=== PATIENT | female | born 1945 | race American Indian/Alaskan Native ===

== ENCOUNTER 2018-06-07 10:48 | Outpatient (CLI) | payer MEDICARE ==
--- NOTE | 2018-06-07 23:12 | XRay Report ---
PROCEDURE: XR SPINE LUMBOSACRAL 2-3V TECHNIQUE: Lumbar spine radiographs, views. HISTORY: LUMBAR STENOSIS COMPARISONS: None . FINDINGS: Vertebral height is within normal limits. Intervertebral disc spaces are well maintained. There is mi ld degree of anterolisthesis at L4-5 and L5-S1 levels measuring about 5 mm resulting in spinal canal stenosis. An acute fracture is not identified. Pre and paravertebral soft tissues are within normal l imits. Bilateral iliac venous stents are identified. IMPRESSION: Spondylolisthesis at L4-5 and L5-S1 with spinal canal stenosis. This document is electronically signed by Behzad Mariee MD., June 07 2018 11:09:53 PM ET
== END 2018-06-07 10:49 | disposition home or self-care (01) ==
LOC: XRAY 10:48
PROVIDERS: ATTEND Neurological Surgery
DX: M43.17 Spondylolisthesis, lumbosacral region (principal); M48.07 Spinal stenosis, lumbosacral region; I10 Essential (primary) hypertension; E78.00 Pure hypercholesterolemia, unspecified; K21.9 Gastro-esophageal reflux disease without esophagitis; M19.90 Unspecified osteoarthritis, unspecified site; E03.9 Hypothyroidism, unspecified; Z90.710 Acquired absence of both cervix and uterus
CPT/HCPCS: 72100

== ENCOUNTER 2019-12-07 09:37 | Outpatient (CLI) | payer OTHER ==
--- NOTE | 2019-12-07 11:15 | Ultrasound Report ---
ULTRASOUND RENAL INDICATION / CLINICAL INFORMATION: N39.0 UTI. COMPARISON: None available. FINDINGS: RIGHT KIDNEY: Length = 10.3 cm. [normal > 9 cm] - Parenchymal Thickness = 1.6 cm. [normal > 1.5 cm] - Echogenicity: Normal. - Hydronephrosis: None. - Cyst or mass: No significant abnormality. - Stones: None seen. LEFT KIDNEY: Length = 10.5 cm. [normal > 9 cm] - Parenchymal Thickness = 1.7 cm. [normal > 1.5 cm] - Echogenicity: Normal. - Hydronephrosis: None. - Cyst or mass: No significant abnormality. - Stones: None seen. URINARY BLADDER: No significant abnormality. FREE FLUID: None. ADDITIONAL FINDINGS: None. IMPRESSION: No significant abnormality. Signer Name: Shane Malik Jr, MD Signed: 12/07/2019 11:10 AM Workstation Name: [id number]
== END 2019-12-07 09:38 | disposition home or self-care (01) ==
LOC: US 09:37
PROVIDERS: ATTEND Urology
DX: N39.0 Urinary tract infection, site not specified (principal)
CPT/HCPCS: 76770

== ENCOUNTER 2020-01-10 06:45 | Outpatient (CLI) | payer OTHER ==
--- NOTE | 2020-01-10 09:35 | Fluoroscopy Report ---
FLUOROSCOPY CYSTOGRAM VOIDING HISTORY: Malignant neoplasm of upper lobe. Urinary incontinence, UTI. COMPARISON: None. FINDINGS: The bladder was catheterized for retrograde administration of approximately 250 cc of Cystografin. Th ere is normal filling of the bladder. No bladder mass or wall abnormality is detected. No vesicourete ral reflux. The catheter was removed for the voiding portion of this exam. The patient was incontinent during thi s exam. The urethra appears normal on fluoroscopy. There is a moderate post void residual at the end of this exam. IMPRESSION: Normal fluoroscopic appearance of the bladder and urethra. Urinary incontinence was witnessed. Moderate post void residual. Fluoroscopic images: 31 Fluoroscopic time: 2.0 minutes. Signer Name: Shane Malik Jr, MD Signed: 01/10/2020 9:30 AM Workstation Name: [id number]
== END 2020-01-10 06:46 | disposition home or self-care (01) ==
LOC: FLUORO 06:45
PROVIDERS: ATTEND Urology
DX: N39.0 Urinary tract infection, site not specified (principal); N39.498 Other specified urinary incontinence; E78.00 Pure hypercholesterolemia, unspecified; I10 Essential (primary) hypertension; K21.9 Gastro-esophageal reflux disease without esophagitis; M19.90 Unspecified osteoarthritis, unspecified site; E03.9 Hypothyroidism, unspecified; Z98.890 Other specified postprocedural states; Z85.850 Personal history of malignant neoplasm of thyroid; Z90.710 Acquired absence of both cervix and uterus; Z98.51 Tubal ligation status
CPT/HCPCS: 51600; 74455; Q9958

== ENCOUNTER 2020-08-25 15:00 | Emergency (ER) | payer OTHER ==
--- NOTE | 2020-08-25 16:50 | Emergency Department Report ---
ED Chest Pain HPI - General Chief Complaint: Chest Pain Stated Complaint: CHEST PAIN/NAUSEA Time Seen by Provider: 08/25/20 16:15 Source: patient Mode of arrival: Wheelchair Limitations: No Limitations - History of Present Illness Initial Comments: 75-year-old female, history of hypertension, hypercholesterolemia, hypothyroidism, acid reflux, presents to ED with complaint of chest pain x2 weeks. Patient states the pain is sharp, worse with upright sitting position, better when lying supine. Patient states she has been having epigastric abdominal pain, indigestion for 2 weeks as well. States she has been taking antiacid, which relieves the discomfort briefly, however pain returns with eating. She reports nausea, no vomiting or diarrhea. Patient states she took a laxative last night. Since then, patient states her stools have been dark col ored. Patient denies iron pills or Pepto-Bismol. Denies any chronic NSAID use. Patient states she takes a baby aspirin daily. Patient also reports some dyspnea on exertion. MD Complaint: chest pain -: week(s) (2) Onset: during rest Pain Location: left chest Severity: moderate Severity scale (0 -10): 4 Quality: sharp Consistency: intermittent Improves With: other (Supine position) Worsens With: palpation, other (Upright position) re: nausea, dyspnea. denies: vomting, diaphoresis Other Symptoms: denies: cough, fever, syncope Aspirin use within the Past 7 Days: (1) Yes - Related Data Home Medications Medication Instructions Recorded Confirmed Last Taken AtorvaSTATin [Lipitor] 40 mg PO QHS 02/07/18 02/07/18 02/06/18 40 mg Famotidine [Pepcid] 40 mg PO QHS 02/07/18 02/07/18 02/06/18 40 mg Hydralazine HCl 50 mg PO TID 02/07/18 02/07/18 02/06/18 50 mg Levothyroxine [Synthroid] 0.125 mg PO DAILY 02/07/18 02/07/18 02/06/18 0.125mg Losartan [Cozaar] 100 mg PO DAILY 02/07/18 02/07/18 02/07/18 06:00 100 mg traZODone [Desyrel] 50 mg PO QHS 02/07/18 02/07/18 02/06/18 50 mg Previous Rx's Medication Instructions Recorded Last Taken Type HYDROcodone/APAP 10-325 [[place]wall 1 each PO Q6HR PRN #30 tablet 02/07/18 Unknown Rx 10/325] oxyCODONE /ACETAMINOPHEN [Percocet 1 tab PO Q4HR PRN #40 tab 02/07/18 Unknown Rx 5/325] Dicyclomine [Bentyl] 20 mg PO QID PRN #20 tablet 08/25/20 Unknown Rx Ondansetron [Zofran Odt] 4 mg PO Q8HR PRN #20 tab.rapdis 08/25/20 Unknown Rx Allergies Allergy/AdvReac Type Severity Reaction Status Date / Time No Known Allergies Allergy Verified 01/24/18 08:19 Heart Score - HEART Score History: Slightly suspicious EKG: Normal Age: > 65 Risk factors: > 3 risk factors or hx of atherosclerotic disease Troponin: < normal limit HEART Score: 4 - EKG Read Time Time EKG Completed: 15:04 EKG Read Time: 16:51 ED Review of Systems ROS: Stated complaint: CHEST PAIN/NAUSEA Other details as noted in HPI Comment: All other systems reviewed and negative Constitutional: denies: chills, fever Respiratory: SOB with exertion. denies: cough Cardiovascular: chest pain Gastrointestinal: abdominal pain, nausea, constipation, melena. denies: vomiting, diarrhea ED Past Medical Hx - Past Medical History Previous Medical History?: Yes Hx Hypertension: Yes Hx GERD: Yes Hx Arthritis: Yes (fingers) - Social History Smoking Status: Never Smoker - Medications Home Medications: Home Medications Medication Instructions Recorded Confirmed Last Taken Type AtorvaSTATin [Lipitor] 40 mg PO QHS 02/07/18 02/07/18 02/06/18 History 40 mg Famotidine [Pepcid] 40 mg PO QHS 02/07/18 02/07/18 02/06/18 History 40 mg HYDROcodone/APAP 10-325 [[place] 1 each PO Q6HR PRN #30 tablet 02/07/18 Unknown Rx 10/325] Hydralazine HCl 50 mg PO TID 02/07/18 02/07/18 02/06/18 History 50 mg Levothyroxine [Synthroid] 0.125 mg PO DAILY 02/07/18 02/07/18 02/06/18 History 0.125mg Losartan [Cozaar] 100 mg PO DAILY 02/07/18 02/07/1802/07/18 06:00 History 100 mg oxyCODONE /ACETAMINOPHEN [Percocet 1 tab PO Q4HR PRN #40 tab 02/07/18 Unknown Rx 5/325] traZODone [Desyrel] 50 mg PO QHS 02/07/18 02/07/18 02/06/18 History 50 mg Dicyclomine [Bentyl] 20 mg PO QID PRN #20 tablet 08/25/20 Unknown Rx Ondansetron [Zofran Odt] 4 mg PO Q8HR PRN #20 tab.rapdis 08/25/20 Unknown Rx ED Physical Exam - General Limitations: No Limitations General appearance: alert, in no apparent distress - Head Head exam: Present: atraumatic, normocephalic - Eye Eye exam: Present: normal appearance, EOMI - ENT ENT exam: Present: mucous membranes moist - Neck Neck exam: Present: normal inspection - Respiratory Respiratory exam: Present: normal lung sounds bilaterally, chest wall tenderness (left anterior chest wall). Absent: respiratory distress - Cardiovascular Cardiovascular Exam: Present: regular rate, normal rhythm - GI/Abdominal GI/Abdominal exam: Present: soft, tenderness (Mild epigastric). Absent: distended - Rectal Rectal exam: Present: heme (+) stool (very faint), other (dark brown stool) - Extremities Exam Extremities exam: Present: normal inspection - Neurological Exam Neurological exam: Present: alert, oriented X3 - Psychiatric Psychiatric exam: Present: normal affect, normal mood - Skin Skin exam: Present: warm, dry, intact, normal color ED Course Vital Signs 08/25/20 08/25/20 08/25/20 16:03 19:00 20:00 Temperature 98 F Pulse Rate 73 71 Respiratory 16 11 L Rate Blood Pressure 146/73 155/65 Blood Pressure 146/73 [Right] O2 Sat by Pulse 98 97 99 Oximetry 08/25/20 21:00 Temperature Pulse Rate 53 L Respiratory 16 Rate Blood Pressure 150/72 Blood Pressure [Right] O2 Sat by Pulse 98 Oximetry ED Medical Decision Making - Lab Data Result diagrams: 08/25/20 16:58 08/25/20 16:58 - EKG Data -: EKG Interpreted by [facility] EKG shows normal: sinus rhythm, axis, intervals, QRS complexes, ST-T waves Rate: normal - EKG Data Interpretation: no acute changes - Radiology Data Radiology results: report reviewed, image reviewed - Medical Decision Making 75-year-old female presents to ED with 2-week history of epigastric pain, indigestion, positional left-sided chest pain. EKG is unremarkable. Troponin is negative x2. Remainder of the labs are fairly unremarkable. CT scan shows evidence of cholelithiasis, without cholecystitis. Patient reported some dark stools since taking a laxative on yesterday. Stool is dark brown and faintly guaiac positive. Hemoglobin is normal. Vital signs are stable. Patient states she is currently on a prescription medication for acid reflux. Patient will be discharged at this time. She is advised to follow-up with general surgery and GI. Return precautions given. - Differential Diagnosis Pancreatitis, GERD, gallstones, GI bleed, anemia Critical care attestation.: If time is entered above; I have spent that time in minutes in the direct care of this critically ill patient, excluding procedure time. ED Disposition Clinical Impression: Chest pain, Cholelithiasis, GI bleed Disposition: TO HOME OR SELFCARE Is pt being admited?: No Condition: Stable Instructions: Food Choices for Gastroesophageal Reflux Disease, Adult, E asy-to-Read, Cholelithiasis, [id number], Nonspecific Chest Pain, Adult, Gastrointestinal Bleeding, [id number] Prescriptions: Dicyclomine [Bentyl] 20 mg PO QID PRN #20 tablet PRN Reason: abdominal pain Ondansetron [Zofran Odt] 4 mg PO Q8HR PRN #20 tab.rapdis PRN Reason: Vomiting Referrals: [facility] [Provider Group] - 3-5 Days MAYRA GRIMES DO [Staff Physician] - 3-5 Days PRIMARY CAREMD [Referring] - 3-5 Days DIANE LEMUS NP [Primary Care Provider] - 3-5 Days Time of Disposition: 20:05
[2020-08-25 17:11] LABS: Basophils % (Auto) 0.6 % (0.0-1.8); Eosinophils # (Auto) 0.1 K/mm3 (0.0-0.4); Eosinophils % (Auto) 1.6 % (0.0-4.3); Hematocrit 37.7 % (30.3-42.9); Hemoglobin 12.9 gm/dl (10.1-14.3); Lymphocytes # (Auto) 1.9 K/mm3 (1.2-5.4); Lymphocytes % (Auto) 27.2 % (13.4-35.0); Mean Corpuscular HGB Conc 34 % (30-34); Mean Corpuscular Volume 89 fl (79-97); Monocytes # (Auto) 0.4 K/mm3 (0.0-0.8); Monocytes % (Auto) 5.2 % (0.0-7.3); Platelet Count 201 K/mm3 (140-440); Red Blood Count 4.24 M/mm3 (3.65-5.03); Red Cell Distribution Width 14.2 % (13.2-15.2)
[2020-08-25 17:21] LABS: INR 0.98 (0.87-1.13); Partial Thromboplastin Time 29.7 Sec. (24.2-36.6)
[2020-08-25 17:34] LABS: Alanine Aminotransferase 16 units/L (7-56); Albumin 4.6 g/dL (3.9-5); BUN/Creatinine Ratio 15; Blood Urea Nitrogen 23 mg/dL (7-17); Calcium 9.8 mg/dL (8.4-10.2); Hemolysis Index 3
[2020-08-25 17:36] LABS: Bilirubin,Direct < 0.2 mg/dL (0-0.2)
--- NOTE | 2020-08-25 17:37 | XRay Report ---
ABDOMEN 4 VIEW(S) INDICATION / CLINICAL INFORMATION: epigastric pain. COMPARISON: None available. FINDINGS: TUBES / LINES: None. BOWEL GAS PATTERN: No significant abnormality. FREE AIR / EXTRALUMINAL GAS: None seen. ADDITIONAL FINDINGS: Clear lungs with normal heart size. Bilateral iliac artery stents are in place. IMPRESSION: 1. No significant abnormality. Signer Name: Reid Lemus MD Signed: 08/25/2020 5:33 PM Workstation Name: [id number]
--- NOTE | 2020-08-25 20:00 | Cat Scan Report ---
CT OF THE ABDOMEN AND PELVIS WITHOUT CONTRAST INDICATION / CLINICAL INFORMATION: Epigastric pain. TECHNIQUE: All CT scans at this location are performed using CT dose reduction for ALARA by means of automated exposure control. COMPARISON: None available. FINDINGS: ABDOMEN: There are multiple simple cysts in the liver, the largest of which measures 3.4 cm in the le ft lobe. There are multiple moderate sized calcified stones in the gallbladder. The gallbladder is no rmal in size without wall thickening or bile duct dilatation. The pancreas, spleen, adrenal glands, kidneys and bowel demonstrate no significant abnormality. No ad enopathy is present. The lung bases are clear. PELVIS: The distal ureters and urinary bladder are normal. The uterus is not identified. There is no evidence of adnexal mass or free fluid. A normal appendix is present. There are scattered sigmoid div erticula without acute inflammation. I do not identify a hernia. There are bilateral common iliac/external iliac venous stents without visible complication. There is moderate generalized spondylosis. IMPRESSION: 1. Cholelithiasis without CT evidence of acute cholecystitis. 2. Sigmoid diverticulosis without evidence of diverticulitis. 3. Multiple simple hepatic cysts. Signer Name: Rafael Kong MD Signed: 08/25/2020 7:56 PM Workstation Name: [id number]
[2020-08-25 21:04] VITALS: BP 150/72
--- NOTE | 2020-08-26 21:44 | Electrocardiograph Report ---
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
== END 2020-08-25 21:10 | disposition home or self-care (01) ==
LOC: ED 15:00
DX: K80.20 Calculus of gallbladder without cholecystitis without obstruction (principal); K92.2 Gastrointestinal hemorrhage, unspecified; R07.89 Other chest pain; I10 Essential (primary) hypertension; K21.9 Gastro-esophageal reflux disease without esophagitis; M19.90 Unspecified osteoarthritis, unspecified site; Z79.899 Other long term (current) drug therapy
CPT/HCPCS: 36415; 74022; 74176; 80048; 80076; 83690; 84484; 85025; 85610; 85730; 93005; 99285